=== PATIENT | male | born 1995 | race Caucasian/White ===

== ENCOUNTER 2018-11-17 05:15 | Emergency (ER) | payer MEDICAID, SELFPAY ==
[2018-11-17 05:21] VITALS: BP 121/61; PULSE 146; RESP 20; TEMP 36.5; O2SAT 93
--- NOTE | 2018-11-17 05:50 | DI.RAD_ITS ---
SYMPTOM/DIAGNOSIS: COUGH PA AND LATERAL CHEST: There are no prior comparison exams. The lungs are not well inflated on either view. There is mild respiratory motion on the lateral view. The heart size is normal. There is no mediastinal widening. The lungs appear clear. No pneumothorax is seen. IMPRESSION: Limited pulmonary inflation. No acute abnormality.
--- NOTE | 2018-11-17 05:54 | W.ED.GENAD ---
Discharge Plan Disposition Patient Disposition: HOME Condition: Good Discharge Details Chief Complaint: RespSymp Clinical Impression: Acute streptococcal pharyngitis, Influenza-like illness Primary Care Provider: Ze Santoyo ED Provider: Vladimir Webster Home Meds and New Rx's Prescriptions: Continued tretinoin [Retin-A] 45 GM cream 1 estela Topical HS Qty: 45 RF: 2 Changed ibuprofen 200 MG tablet 2 tab PO Q6H PRNQty: 0 RF: 0 Discharge Instructions Additional Instructions: Home and rest for the next couple of days. Drink plenty of fluids to stay hydrated. Salt water gargles or Cepacol lozenges to help with throat discomfort. Acetaminophen and ibuprofen for discomfort and fever. Follow-up with student health services next week if not better. Return to the emergency department for increasing difficulty breathing, inability to swallow, mental status changes, persistent vomiting, other concerns. Stand Alone Forms: School Release Medical Decision Making Patient is afebrile here but he is tachycardic and saturations in the low 90s. His lungs actually sound clear; I do not appreciate wheezing or rhonchi. Throat is erythematous with exudates. Nursing did a rapid strep which was positive. However, he has a significant cough and congestion. Will obtain flu swab and chest x-ray. Will place a line and give fluids and Toradol. Check CBC, chemistry, Monospot. Patient's flu swab is negative. White count is elevated to 20,000. Monospot is negative. There are no atypical lymphs. Chemistries were unremarkable. Chest x-ray per my review and per preliminary radiology read negative. Heart rate is come down to the 115 range with fluids. Saturations now 95% - 96% with no intervention. Discussed treatment. She has therapies. He needs to go back to school so will take IM shot of penicillin. We will give him a note for school for a couple of days to recover. Home to rest, drink plenty of fluids, gargles, ibuprofen/acetaminophen as needed. Lab Data Lab results reviewed: Yes I reviewed the patient's lab results. HPI General Mode of arrival: ambulatory. Date/Time Provider Initiated Documentation: 11/17/18 05:42. Limitations to Documentation: no limitations. Information obtained by: patient. HPI Narrative: Patient presents to ED with complaints of increased cough, sore throat, vomiting. Patient has had a mild URI for the last couple of weeks. It has consisted of intermittent cough and congestion. In the last 2 days he has become worse. He now has sweats, chills, increasing sore throat, increasing cough with sputum production. He has mild nausea. He has no abdominal pain or chest pain. He coughs so hard at times that he gags and vomits. He has some body aches though not severe. Denies significant headache. He does not smoke. He has a history of wheezing with previous URI but no firm diagnosis of asthma. Related Data Home Medications Medication Instructions Recorded Confirmed tretinoin [Retin-A] 1 estela TOPICAL HS #45 gm 01/25/15 11/17/18 ibuprofen 2 tab PO Q6H PRN #0 tab 11/17/18 11/17/18 Previous Rx's Medication Instructions Recorded ibuprofen 2 tab PO Q6H PRN #0 tab 11/17/18 Allergies Allergy/AdvReac Type Severity Reaction Status Date / Time No Known Allergies Allergy Unverified 11/17/18 05:34 General Stated Complaint: RespSymp RUTHIE: 4 Review of Systems Constitutional Reports body ache(s), Reports chills, Reports excessive sweating, Reports fever(s) (subjective), Denies headache(s), Reports malaise and Denies weakness Eyes Denies eye discharge ENT Denies otalgia, Denies headache(s), Reports nasal congestion, Denies neck pain, Denies sinus pain and Reports sore throat Cardiovascular Denies chest pain, Denies syncope, Denies lightheadedness and Denies dyspnea Respiratory Reports chest congestion, Reports cough and Denies dyspnea Gastrointestinal Denies abdominal pain, Denies diarrhea, Reports nausea and Reports vomiting Genitourinary Denies dysuria and Denies flank pain Musculoskeletal Denies back pain, Reports myalgias, Denies arthralgias, Denies neck pain and Denies numbness Integumentary/Breasts Denies rash Neurologic Denies confusion, Denies syncope, Denies headache(s), Denies numbness and Denies weakness Psychiatric Denies confusion Endocrine Reports excessive sweating [facility] Medical History Concussion frequent strep throat Surgical History Tonsillectomy and adenoidectomy left thumb repair Family History Mother Hypothyroid Father No problems noted. Other No problems noted. Social History Smoking/Tobacco Use Status: Never Drug use: Never Do you feel safe at home: Yes Do you feel safe in your relationship?: Yes Exam Const General: cooperative and no acute distress Nutritional Appearance: obese Orientation: alert and oriented x3 HENMT Head: normocephalic and atraumatic Ears: external ears normal and TM's normal bilaterally General nose exam: no nasal discharge Face and sinus: normal facial exam Mouth: oropharynx normal and moist mucous membranes Throat: posterior oropharynx abnormal erythema and exudates Eyes Conjunctivae: conjunctivae normal Neck Neck: no lymphadenopathy, no meningeal signs, trachea midline and supple Resp Effort & Inspection: normal respiratory effort Auscultation: clear to auscultation bilaterally Cardio Rate: tachycardic Rhythm: regular rhythm Heart Sounds: S1 normal and S2 normal GI Inspection: normal to inspection and non-distended Palpation: soft, not firm and nontender Skin Rashes: no rashes Neuro General: alert, oriented x3, no focal motor deficits and CN's II-XI intact bilaterally Extrem General: normal to inspection and full ROM Course Vital Signs Temperature 97.7 F 11/17/18 05:21 Pulse 146 H 11/17/18 05:21 Respiratory Rate 20 11/17/18 05:21 Blood Pressure 121/61 11/17/18 05:21 Pulse Oximetry 93 L 11/17/18 05:21 Temperature 97.7 F 11/17/18 05:21 Temperature Source Temporal Artery Scan 11/17/18 05:21 Pulse 146 H 11/17/18 05:21 Respiratory Rate 20 11/17/18 05:21 Respiratory Effort 11/17/18 05:32 Respiratory Depth Normal 11/17/18 05:32 Blood Pressure 121/61 11/17/18 05:21 Pulse Oximetry 93 L 11/17/18 05:21 Oxygen Delivery Method Room Air 11/17/18 05:21 Oxygen Flow Rate 0 11/17/18 05:21 Pain Level 7 11/17/18 05:21 Lab/Test Results Lab/Test Results: POC Strep Test-MARY(Rapid) Start: 11/17/18 05:35 Freq: .Rapid Strep Test Status: Active Protocol: Document 11/17/18 05:39 MJM (Rec: 11/17/18 05:40 [facility] [id number]) Strep test-MARY(Rapid)-POC POC-Strep test-MARY (Rapid) Positive POC-Strep test-MARY (Rapid) Positive
--- NOTE | 2018-11-17 06:02 | ED.GENADUL_ITS ---
Discharge Plan Disposition Patient Disposition: HOME Condition: Good Discharge Details Chief Complaint: RespSymp Clinical Impression: Acute streptococcal pharyngitis, Influenza-like illness Primary Care Provider: Ze Santoyo ED Provider: Vladimir Webster Home Meds and New Rx's Prescriptions: Continued tretinoin [Retin-A] 45 GM cream 1 estela Topical HS Qty: 45 RF: 2 Changed ibuprofen 200 MG tablet 2 tab PO Q6H PRNQty: 0 RF: 0 Discharge Instructions Additional Instructions: Home and rest for the next couple of days. Drink plenty of fluids to stay hydrated. Salt water gargles or Cepacol lozenges to help with throat discomfort. Acetaminophen and ibuprofen for discomfort and fever. Follow-up with student health services next week if not better. Return to the emergency department for increasing difficulty breathing, inability to swallow, mental status changes, persistent vomiting, other concerns. Stand Alone Forms: School Release Medical Decision Making Patient is afebrile here but he is tachycardic and saturations in the low 90s. His lungs actually sound clear; I do not appreciate wheezing or rhonchi. Throat is erythematous with exudates. Nursing did a rapid strep which was positive. However, he has a significant cough and congestion. Will obtain flu swab and chest x-ray. Will place a line and give fluids and Toradol. Check CBC, chemistry, Monospot. Patient's flu swab is negative. White count is elevated to 20,000. Monospot is negative. There are no atypical lymphs. Chemistries were unremarkable. Chest x-ray per my review and per preliminary radiology read negative. Heart rate is come down to the 115 range with fluids. Saturations now 95% - 96% with no intervention. Discussed treatment. She has therapies. He needs to go back to school so will take IM shot of penicillin. We will give him a note for school for a couple of days to recover. Home to rest, drink plenty of fluids, gargles, ibuprofen/acetaminophen as needed. Lab Data Lab results reviewed: Yes I reviewed the patient's lab results. HPI General Mode of arrival: ambulatory . Date/Time Provider Initiated Documentation: 11/17/18 05:42 . Limitations to Documentation: no limitations . Information obtained by: patient . HPI Narrative: Patient presents to ED with complaints of increased cough, sore throat, vomiting. Patient has had a mild URI for the last couple of weeks. It has consisted of intermittent cough and congestion. In the last 2 days he has become worse. He now has sweats, chills, increasing sore throat, increasing cough with sputum production. He has mild nausea. He has no abdominal pain or chest pain. He coughs so hard at times that he gags and vomits. He has some body aches though not severe. Denies significant headache. He does not smoke. He has a history of wheezing with previous URI but no firm diagnosis of asthma. Related Data Home Medications Medication Instructions Recorded Confirmed tretinoin [Retin-A] 1 estela TOPICAL HS #45 gm 01/25/15 11/17/18 ibuprofen 2 tab PO Q6H PRN #0 tab 11/17/18 11/17/18 Previous Rx's Medication Instructions Recorded ibuprofen 2 tab PO Q6H PRN #0 tab 11/17/18 Allergies Allergy/AdvReac Type Severity Reaction Status Date / Time No Known Allergies Allergy Unverified 11/17/18 05:34 General Stated Complaint: RespSymp RUTHIE: 4 Review of Systems Constitutional Reports body ache(s), Reports chills, Reports excessive sweating, Reports fever(s) (subjective), Denies headache(s), Reports malaise and Denies weakness Eyes Denies eye discharge ENT Denies otalgia, Denies headache(s), Reports nasal congestion, Denies neck pain, Denies sinus pain and Reports sore throat Cardiovascular Denies chest pain, Denies syncope, Denies lightheadedness and Denies dyspnea Respiratory Reports chest congestion, Reports cough and Denies dyspnea Gastrointestinal Denies abdominal pain, Denies diarrhea, Reports nausea and Reports vomiting Genitourinary Denies dysuria and Denies flank pain Musculoskeletal Denies back pain, Reports myalgias, Denies arthralgias, Denies neck pain and Denies numbness Integumentary/Breasts Denies rash Neurologic Denies confusion, Denies syncope, Denies headache(s), Denies numbness and Denies weakness Psychiatric Denies confusion Endocrine Reports excessive sweating [facility] Medical History Concussion frequent strep throat Surgical History Tonsillectomy and adenoidectomy left thumb repair Family History Mother Hypothyroid Father No problems noted. Other No problems noted. Social History Smoking/Tobacco Use Status: Never Drug use: Never Do you feel safe at home: Yes Do you feel safe in your relationship?: Yes Exam Const General: cooperative and no acute distress Nutritional Appearance: obese Orientation: alert and oriented x3 HENMT Head: normocephalic and atraumatic Ears: external ears normal and TM's normal bilaterally General nose exam: no nasal discharge Face and sinus: normal facial exam Mouth: oropharynx normal and moist mucous membranes Throat: posterior oropharynx abnormal erythema and exudates Eyes Conjunctivae: conjunctivae normal Neck Neck: no lymphadenopathy, no meningeal signs, trachea midline and supple Resp Effort & Inspection: normal respiratory effort Auscultation: clear to auscultation bilaterally Cardio Rate: tachycardic Rhythm: regular rhythm Heart Sounds: S1 normal and S2 normal GI Inspection: normal to inspection and non-distended Palpation: soft, not firm and nontender Skin Rashes: no rashes Neuro General: alert, oriented x3, no focal motor deficits and CN's II-XI intact bilaterally Extrem General: normal to inspection and full ROM Course Vital Signs Temperature 97.7 F 11/17/18 05:21 Pulse 146 H 11/17/18 05:21 Respiratory Rate 20 11/17/18 05:21 Blood Pressure 121/61 11/17/18 05:21 Pulse Oximetry 93 L 11/17/18 05:21 Temperature 97.7 F 11/17/18 05:21 Temperature Source Temporal Artery Scan 11/17/18 05:21 Pulse 146 H 11/17/18 05:21 Respiratory Rate 20 11/17/18 05:21 Respiratory Effort 11/17/18 05:32 Respiratory Depth Normal 11/17/18 05:32 Blood Pressure 121/61 11/17/18 05:21 Pulse Oximetry 93 L 11/17/18 05:21 Oxygen Delivery Method Room Air 11/17/18 05:21 Oxygen Flow Rate 0 11/17/18 05:21 Pain Level 7 11/17/18 05:21 Lab/Test Results Lab/Test Results: POC Strep Test-MARY(Rapid) Start: 11/17/18 05:35 Freq: .Rapid Strep Test Status: Active Protocol: Document 11/17/18 05:39 MJM (Rec: 11/17/18 05:40 [facility] [id number]) Strep test-MARY(Rapid)-POC POC-Strep test-MARY (Rapid) Positive POC-Strep test-MARY (Rapid) Positive
[2018-11-17] MEDS: Normal Saline 1,000 ML 1000 ML IV (06:04)
[2018-11-17] MEDS: Ketorolac 30 MG/ML VIAL IVP (06:04)
[2018-11-17 06:22] LABS: Abs Immature Grans 0.05 k/cumm (0.0-0.09); Absolute Basophil Count 0.02 k/cumm (0.0-0.2); Absolute Lymphocyte Count 0.81 k/cumm (1.2-3.4); Absolute Monocyte Count 1.16 k/cumm (0.11-0.7); Basophils % 0.1; HCT 42.1 % (40.0-50.0); HGB 15.1 g/dL (13.5-17.5); Immature Grans % 0.2; Mean Corp. HGB Concentration 35.9 g/dL (32.0-36.0); Mean Corpuscular Hemoglobin 29.5 pg (27.0-33.0); Mean Corpuscular Volume 82.4 fL (80-95); Mean Platelet Volume 9.5 fL (8.0-11.0); Monocytes % 5.7; Platelet Count 296 x1000/uL (130-400); RBC 5.11 m/cumm (4.50-6.00); RBC Distribution Width 12.7 % (11.8-14.1); White Blood Cell Count 20.32 k/cumm (4.4-10.8)
[2018-11-17 06:25] LABS: Anion Gap 15.7 mmol/L (3-11); BUN 17 mg/dL (7-18); CO2 24.3 mmol/L (21.0-32.0); Calcium 9.3 mg/dL (8.5-10.1); Chloride 98 mmol/L (98-107); Glucose 133 mg/dL (70-100); Potassium 3.9 mmol/L (3.5-5.1); Sodium 138 mmol/L (136-145)
[2018-11-17 06:27] LABS: Mono Screening Negative (Negative)
[2018-11-17 06:28] LABS: Absolute Neutrophil Count 18.29 k/cumm (1.2-6.7)
--- NOTE | 2018-11-17 06:30 | DI.VRAD_ITS ---
EXAM: XR Chest, 2 Views EXAM DATE/TIME: 11/17/2018 5:53 AM CLINICAL HISTORY: 23 years old, male; Signs and symptoms; Cough TECHNIQUE: Imaging protocol: XR of the chest, 2 views. COMPARISON: No relevant prior studies available. FINDINGS: Lungs: Unremarkable. No consolidation. Pleural space: Unremarkable. No evidence of pneumothorax. Heart/Mediastinum: Unremarkable. Heart size within normal limits for technique. Bones/joints: Unremarkable. IMPRESSION: No acute findings. Dictated and Authenticated by: Sammy Fuller MD. Ordering:SUSY Gilbert MD
[2018-11-17 08:20] VITALS: BP 142/88; PULSE 105; RESP 16; TEMP 36.5; O2SAT 98
== END 2018-11-17 08:20 | disposition home or self-care (01) ==
PROVIDERS: Emergency Provider Emergency Medicine; PCP Pediatrics
DX: J02.0 Streptococcal pharyngitis (principal); J11.1 Influenza due to unidentified influenza virus with other respiratory manifestations
CPT/HCPCS: 36415; 80048; 87449; 87880; 96361; 96372; 96374; 99284; 71046; 85025; 86308; 99283; J0561; J1885

== ENCOUNTER 2019-06-13 08:37 | Emergency (ER) | payer MEDICAID, SELFPAY ==
[2019-06-13 08:44] VITALS: BP 159/87; PULSE 87; RESP 16; TEMP 36.6; O2SAT 98
--- NOTE | 2019-06-13 08:49 | ED.GENADUL_ITS ---
Discharge Plan Disposition Patient Disposition: HOME Condition: Stable Discharge Details Chief Complaint: RashLesion Clinical Impression: Herpetic jyoti Primary Care Provider: Ze Santoyo ED Provider: Khoi Coffey [place] Meds and New Rx's Prescriptions: New acyclovir 5 % ointment 1 applic TP 6XD 7 Days RF: 0 cephalexin 500 mg capsule 500 mg PO TID Qty: 21 RF: 0 Discharge Instructions Additional Instructions: if your rash is not better within 1 week see your primary care provider if you have redness spreading up the hand or fevers or severe pain return to the emergency department Medical Decision Making 24 yo male comes in with rash on right middle finger for 1 day. He denies fevers or other systemic symptoms. He has numerous small vesicles on distal right middle finger on the posterior surface with mild surrounding erythema less than 0.5cm. No discharge or purulence, has intact sensation and full rom of the finger. Suspect herpetic jyoti but given erythema will also trreat possible cellulitis. Advised if not better within 1 week be seen and return if worsening Differential Diagnosis Differential Diagnosis: cellulitis, herpetic jyoti HPI General Mode of arrival: ambulatory . Date/Time Provider Initiated Documentation: 06/13/19 08:41 . Limitations to Documentation: no limitations . Information obtained by: patient . History of Present Illness 24 year old M presents to the emergency department with the chief complaint of rash, described as mild, Quality is described as aching, and is localized to the right and upper extremity. Patient reports no radiation. Patient started experiencing this day(s) (1) and it has been constant. No relieving factors improve symptom(s), No exacerbating factors reported . Related Data Home Medications Medication Instructions Recorded Confirmed acyclovir 1 applic TP 6XD 7 Days gm 06/13/19 cephalexin 500 mg PO TID #21 cap 06/13/19 Previous Rx's Medication Instructions Recorded acyclovir 1 applic TP 6XD 7 Days gm 06/13/19 cephalexin 500 mg PO TID #21 cap 06/13/19 Allergies Allergy/AdvReac Type Severity Reaction Status Date / Time No Known Allergies Allergy Unverified 06/13/19 08:47 General Stated Complaint: RashLesion RUTHIE: 5 Review of Systems Review of Systems ROS Unobtainable: All systems reviewed & are unremarkable except as noted in HPI and below Constitutional Constitutional: Denies chills, Denies fever(s) and Denies weakness ENT Ears, Nose, Mouth, and Throat: Denies change in voice Cardiovascular Cardiovascular: Denies chest pain and Denies dyspnea Respiratory Respiratory: Denies cough and Denies dyspnea Gastrointestinal Gastrointestinal: Denies abdominal pain, Denies nausea and Denies vomiting Neurologic Neurologic: Denies weakness PFSH Family History Mother Hypothyroid Father No problems noted. Other No problems noted. Social History Smoking/Tobacco Use Status: Never Drug use: Socially Substance use type: marijuana Do you feel safe at home: Yes Do you feel safe in your relationship?: Yes Exam Const General: no acute distress Orientation: alert HENMT Head: normal to inspection Ears: external ears normal General nose exam: external nose normal Mouth: moist mucous membranes Eyes General: appearance normal, both eyes and all related structures Neck Neck: normal visual inspection Resp Effort & Inspection: normal respiratory effort and able to speak in complete sentences Cardio Rate: regular rate Skin General skin exam: elasticity normal Neuro General: alert and oriented x3 Extrem General: full ROM and normal capillary refill Psych Mental Status: mental status grossly normal Course Vital Signs Vital signs: Vital Signs Temperature 36.6 C 06/13/19 08:44 Pulse 87 06/13/19 08:44 Respiratory Rate 16 06/13/19 08:44 Blood Pressure 159/87 H 06/13/19 08:44 Pulse Oximetry 98 06/13/19 08:44 Temperature 36.6 C 06/13/19 08:44 Temperature Source Temporal Artery Scan 06/13/19 08:44 Pulse 87 06/13/19 08:44 Respiratory Rate 16 06/13/19 08:44 Respiratory Effort 06/13/19 08:44 Blood Pressure 159/87 H 06/13/19 08:44 Pulse Oximetry 98 06/13/19 08:44 Oxygen Delivery Method Room Air 06/13/19 08:44 Oxygen Flow Rate 0 06/13/19 08:44 Pain Level 8 06/13/19 08:44
== END 2019-06-13 08:54 | disposition home or self-care (01) ==
PROVIDERS: Emergency Provider Emergency Medicine; PCP Pediatrics
DX: B00.89 Other herpesviral infection (principal)
CPT/HCPCS: 99283

== ENCOUNTER 2019-11-10 16:20 | Emergency (ER) | payer MEDICAID, SELFPAY ==
[2019-11-10 16:21] VITALS: BP 135/79; PULSE 89; RESP 16; TEMP 36.6; O2SAT 96
--- NOTE | 2019-11-10 16:26 | ED.GENADUL_ITS ---
Discharge Plan Disposition Patient Disposition: HOME Condition: Good Discharge Details Chief Complaint: RashLesion Clinical Impression: Cat scratch fever Primary Care Provider: Ze Santoyo ED Provider: Niya Valderrama Home Meds and New Rx's Prescriptions: New azithromycin 250 mg tablet See Rx Instructions .ROUTE .COMPLEX Qty: 6 RF: 0 Discharge Instructions Instructions: Cellulitis (ED), Cat Scratch Disease (ED) Additional Instructions: With findings of vesicle at the site of scratches most consistent with cat scratch disease. Do not show any signs of the progressive illness and will likely do quite well with this as you are and otherwise healthy person. Please take the azithromycin as prescribed. Please follow-up with primary care in 2 to 3 days for reevaluation. If you develop fever/chills, increased pain, spreading of the redness or the new/worsening symptoms please seek care urgently once again. Referrals: Ze Santoyo MD [Primary Care Provider] - Discharge Data Discharge Date/Time-TO BE ENTERED AT DEPARTURE: 11/10/19 17:11 Medical Decision Making Patient is a pleasant 24-year-old [id number] male presenting today for evaluation of cat scratch on the ulnar side of his right wrist. He reports that he sustained a scratch 2 days ago. Since that time, had noted vesicles around the area of scratch. Denies any fevers or chills. States that this has been slightly itchy denies any pain. Has noted some discharge from the vesicles. Did apply Band-Aid and reports that after removing this he did not erythema the area of the Band-Aid. Has had issues with adhesives historically. States that he is up-to-date on immunizations. Cat is known to him and up to date on immunizations as well. On exam, patient has very vesicles surrounding a 1.5 cm superficial scratch consistent with a cat wound. Surrounding area of vesicles is a raised erythematous area that is nontender. It is warm to the touch. There is most consistent with a large hive. However, the vesicles are concerning. This is concerning for cat scratch disease. Plan to treat as such. He has no lymphadenopathy or signs of systemic illness. He is otherwise immunocompetent and should do well with this. Will treat with azithromycin as advised and up-to-date. We discussed the clinical course. He was given return precautions. Dressings were given that are nonadhesive. Follow-up with primary care in few days for reevaluation. All his questions and concerns were addressed and he is in agreement this plan. HPI General Mode of arrival: ambulatory . Date/Time Provider Initiated Documentation: 11/10/19 16:26 . Limitations to Documentation: no limitations . Information obtained by: patient and RN notes reviewed . History of Present Illness 24 year old M presents to the emergency department with the chief complaint of cat scratch 2 days ago, described as mild, with intensity rated at 4 (states it has been itchy). Quality is described as other (itching and t ingling), and is localized to the right and upper extremity. Patient started experiencing this day(s) (2) and it has been constant. No relieving factors improve symptom(s), No exacerbating factors reported . Patient notes no other symptoms.. Patient did receive the following treatments prior to arrival, other (steroid creams) Related Data Home Medications Medication Instructions Recorded Confirmed azithromycin See Rx Instructions .ROUTE 11/10/19 .COMPLEX #6 tab Previous Rx's Medication Instructions Recorded azithromycin See Rx Instructions .ROUTE 11/10/19 .COMPLEX #6 tab Allergies Allergy/AdvReac Type Severity Reaction Status Date / Time No Known Allergies Allergy Unverified 11/10/19 16:26 General Stated Complaint: RashLesion RUTHIE: 4 Review of Systems Constitutional Constitutional: Reports as per HPI, Denies chills and Denies fever(s) Musculoskeletal Musculoskeletal: Reports as per HPI Integumentary/Breasts Skin/Breast: Reports as per HPI Neurologic Neurologic: Reports as per HPI, Denies sensory deficit and Denies paresthesias [facility] Medical History Concussion frequent strep throat Surgical History left thumb repair bit by a pig at age 4 Tonsillectomy and adenoidectomy Family History Mother Hypothyroid Father No problems noted. Other No problems noted. Social History Smoking/Tobacco Use Status: Never Drug use: Socially Substance use type: marijuana Do you feel safe at home: Yes Do you feel safe in your relationship?: Yes Exam Const General: cooperative, healthy appearing, comfortable, no acute distress and well developed Nutritional Appearance: well nourished and obese Orientation: alert and awake Resp Effort & Inspection: normal respiratory effort, able to speak in complete sentences and no respiratory distress Cardio Rate: regular rate Rhythm: regular rhythm Skin General skin exam: erythema, no fluctuance and other (vesicles in center area of erythema over small scratch) Neuro General: patient alert and patient awake Cognition: normal cognition Speech: speech normal Gait: normal gait Sensory Exam: no sensory deficits noted Extrem Right upper extremity: full ROM, normal capillary refill, no joint enlargement and wrist (2+ distal pulses,); abnormal to inspection (As drawn below. No palpable lymphadenopathy) Elbow/forearm/wrist images: 1. Focal area of vesicles surrounding small cat scratch 2. Area of raised, nontender erythema Psych Appearance: grossly normal and well kempt Mental Status: mental status grossly normal Speech and Movement: speech and movement normal Course Vital Signs Vital signs: Vital Signs Temperature 36.6 C 11/10/19 16:21 Pulse 89 11/10/19 16:21 Respiratory Rate 16 11/10/19 16:21 Blood Pressure 135/79 11/10/19 16:21 Pulse Oximetry 96 11/10/19 16:21 Temperature 36.6 C 11/10/19 16:21 Temperature Source Skin 11/10/19 16:21 Pulse 89 11/10/19 16:21 Respiratory Rate 16 11/10/19 16:21 Blood Pressure 135/79 11/10/19 16:21 Blood Pressure Position Sitting 11/10/19 16:21 Pulse Oximetry 96 11/10/19 16:21 Oxygen Delivery Method Room Air 11/10/19 16:21 Oxygen Flow Rate 0 11/10/19 16:21 Pain Level 4 11/10/19 16:21
== END 2019-11-10 17:11 | disposition home or self-care (01) ==
PROVIDERS: Emergency Provider Physician Assistant; PCP Pediatrics
DX: A28.1 Cat-scratch disease (principal); S60.811A Abrasion of right wrist, initial encounter; W55.03XA Scratched by cat, initial encounter
CPT/HCPCS: 99283

== ENCOUNTER 2019-11-12 18:23 | Emergency (ER) | payer MEDICAID, SELFPAY ==
[2019-11-12 18:33] VITALS: BP 149/110; PULSE 96; RESP 16; TEMP 36.8; O2SAT 97
--- NOTE | 2019-11-12 18:41 | ED.GENADUL_ITS ---
Discharge Plan Disposition Patient Disposition: HOME Condition: Good Discharge Details Chief Complaint: RashLesion Clinical Impression: Dermatitis Primary Care Provider: Ze Santoyo ED Provider: Efrain Rivera Home Meds and New Rx's Prescriptions: New hydrocortisone 2.5 % cream 1 applic TP TID Qty: 20 RF: 0 loratadine 10 mg capsule 10 mg PO DAILY Qty: 10 RF: 0 No Action azithromycin 250 mg tablet See Rx Instructions .ROUTE .COMPLEX Qty: 6 RF: 0 Discharge Instructions Instructions: Dermatitis (ED) Additional Instructions: At this time your symptoms Care Plan Goals: At this time your symptoms do not appear consistent with cat scratch fever, however I would continue the antibiotic. The skin certainly shows symptoms more concerning for an allergic dermatitis at this stage. Please apply the steroid ointment as directed. It is very important to follow-up with your primary care provider in 48 hours to evaluate for change in your symptoms, including improvement or worsening. Please take the loratadine as directed to help with itching and allergic component. We are performing skin cultures, as well as potential viral cultures which your PCP can follow-up with on your repeat assessment. If you notice any worsening of your symptoms, or any new symptoms such as spreading of redness, worsening pain, vomiting, diarrhea, fever, chills, shortness of breath, chest pain, numbness, weakness, or fainting , please return immediately to the emergency department for reevaluation. Please follow up with your primary care provider as soon as possible for reassessment and reevaluation. As always, it was a pleasure participating in your medical care today. Referrals: Ze Santoyo MD [Primary Care Provider] - Medical Decision Making 24-year-old male with past medical history of previous skin reactions and high skin sensitivity to allergic contacts, presents today for evaluation of rash on his right wrist. Patient was seen 2 days ago, after being scratched by a cat. He had a few very small vesicles noted at that time. There is concern for potential cat scratch fever, he was started on azithromycin and discharged home. Patient did develop some extreme itching, he took Benadryl which notably improved the itching but he feels that the vesicles and redness is spreading. He denies fever or chills. There is mild pain in his hand, worse with movement. He denies any significant changes in sensation. He denies any redness traveling up his arm. He denies any new lymphadenopathy or other complaints. He has been taking the azithromycin as directed. Physical exam demonstrates small vesicles noted on the medial aspect of the wrist at the crease. No palpable purpura. No oral lesions. No mucosal lesions. No evidence of severe cellulitis. No evidence of significant redness surrounding this area. Minimal swelling is noted. Distal capillary refill is intact. The small vesicles do not easily rub off. The area of inclusion centrally goes from the mid dorsal aspect of the wrist wrapping completely around medially to the lateral third on the ventral aspect of the wrist. No evidence of distal lesions, no signs of herpetic jyoti. The patient symptoms appear very unlike herpetic jyoti or cat scratch fever. In fact instead they look notably more manas to a contact dermatitis type reaction. There is no evidence of significant cellulitis surrounding these vesicles, no evidence of traveling cellulitis either. The patient has no symptoms of fever or chills whatsoever. The patient does have a history of herpetic jyoti, and out of an abundance of precaution we will do a viral swab of the vesicles, as well as a bacterial skin swab. Symptoms at this point appear inconsistent with erysipelas. With no signs of significant cellulitis I do not feel that he needs additional antibiotics at this point. We will give a topical steroid cream, and recommend loratadine for the itching. This certainly seems more consistent with his symptoms. 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 We will do topical hydrocortisone for the time being, loratadine for the itching, recommend close follow-up. We will place a referral for follow-up with pediatrics on this Sunday. I have extensively reviewed the treatment plan and discharge instructions with the patient. I have addressed all patient concerns at this time. The patient was made aware of what symptoms to monitor for that would warrant a return to the emergency department. Discussed the plan with the patient, they demonstrate verbal understanding and agreement with our assessment and plan at this time. HPI General Date/Time Provider Initiated Documentation: 11/12/19 18:28 . HPI Narrative: 24-year-old male with past medical history of previous skin reactions and high skin sensitivity to allergic contacts, presents today for evaluation of rash on his right wrist. Patient was seen 2 days ago, after being scratched by a cat. He had a few very small vesicles noted at that time. There is concern for potential cat scratch fever, he was started on azithromycin and discharged home. Patient did develop some extreme itching, he took Benadryl which notably improved the itching but he feels that the vesicles and redness is spreading. He denies fever or chills. There is mild pain in his hand, worse with movement. He denies any significant changes in sensation. He denies any redness traveling up his arm. He denies any new lymphadenopathy or other complaints. He has been taking the azithromycin as directed. 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 No other complaints at this time. No other modifying factors. Related Data Home Medications Medication Instructions Recorded Confirmed azithromycin See Rx Instructions .ROUTE 11/10/19 11/12/19 .COMPLEX #6 tab hydrocortisone 1 applic TP TID #20 gm 11/12/19 loratadine 10 mg PO DAILY #10 cap 11/12/19 Previous Rx's Medication Instructions Recorded azithromycin See Rx Instructions .ROUTE 11/10/19 .COMPLEX #6 tab hydrocortisone 1 applic TP TID #20 gm 11/12/19 loratadine 10 mg PO DAILY #10 cap 11/12/19 Allergies Allergy/AdvReac Type Severity Reaction Status Date / Time No Known Allergies Allergy Unverified 11/12/19 18:36 General Stated Complaint: RashLesion RUTHIE: 4 Review of Systems All systems reviewed & are unremarkable except as noted in HPI and below PFSH Family History Mother Hypothyroid Father No problems noted. Other No problems noted. Social History Smoking/Tobacco Use Status: Never Alcohol Intake: current Alcohol Intake frequency: holidays/special occasions only Alcohol type: hard liquor Drug use: Socially Substance use type: marijuana Do you feel safe at home: Yes Do you feel safe in your relationship?: Yes Exam Narrative Exam Narrative: 1.Const: Well-nourished, Well-developed, appearing stated age 2.Eyes: PERRL, no conjunctival injection, and symmetrical lids. 3.ENT: Atraumatic external nose and ears. Moist MM. Neck: Symmetric, trachea midline, No thyromegaly. 4.CVS: +S1/S2, No murmurs or gallops. Peripheral pulses 2+ and equal in all extremities. Brisk capillary refill in all extremities. 5.RESP: Unlabored respiratory effort. Clear to auscultation bilaterally. No wheezes rales or rhonchi 6.GI: Soft, Nontender/Nondistended, No hepatosplenomegaly. No guarding or rebound. 7.MSK: Normocephalic/Atraumatic, Extremities w/o deformity or ttp No cyanosis or clubbing, Normal movement of all extremities 8.Skin: Warm, negative Nikolsky sign. No large vesicles or bulla. However there are small vesicles noted on the medial aspect of the wrist at the crease. No palpable purpura. No oral lesions. No mucosal lesions. No evidence of severe cellulitis. No evidence of significant redness surrounding this area. Minimal swelling is noted. Distal capillary refill is intact. The small vesicles do not easily rub off. The area of inclusion centrally goes from the mid dorsal aspect of the wrist wrapping completely around medially to the late ral third on the ventral aspect of the wrist. No evidence of distal lesions, no signs of herpetic jyoti. No evidence of vaccine preventable rash. 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 Sensation grossly intact, no focal neurologic deficits. 10.Psych: (AAO) x3. Appropriate mood and affect Course Vital Signs Vital signs: Vital Signs Temperature 36.8 C 11/12/19 18:33 Pulse 96 H 11/12/19 18:33 Respiratory Rate 16 11/12/19 18:33 Blood Pressure 149/110 H 11/12/19 18:33 Pulse Oximetry 97 11/12/19 18:33 Temperature 36.8 C 11/12/19 18:33 Temperature Source Tympanic 11/12/19 18:33 Pulse 96 H 11/12/19 18:33 Respiratory Rate 16 11/12/19 18:33 Respiratory Effort Non-Labored 11/12/19 18:36 Blood Pressure 149/110 H 11/12/19 18:33 Pulse Oximetry 97 11/12/19 18:33 Oxygen Delivery Method Room Air 11/12/19 18:33 Oxygen Flow Rate 0 11/12/19 18:33 Pain Level 8 11/12/19 18:33
--- NOTE | 2019-11-12 18:55 | NUR.NOTE ---
Referral faxed to [facility].Nursing Note:
[2019-11-12 19:11] VITALS: BP 157/84; PULSE 80; RESP 17; O2SAT 98
[2019-11-14 12:21] LABS: HSV 1 DNA Result Negative (Negative); HSV 2 DNA Result Negative (Negative)
== END 2019-11-12 19:33 | disposition home or self-care (01) ==
PROVIDERS: Emergency Provider Student in an Organized Health Care Education/Training Program; PCP Pediatrics
DX: L30.8 Other specified dermatitis (principal)
CPT/HCPCS: 87529; 99283; 87070; 87205

== ENCOUNTER 2021-09-23 09:16 | Emergency (ER) | payer MEDICAID, SELFPAY ==
[2021-09-23 09:24] VITALS: BP 129/85; PULSE 95; RESP 16; TEMP 36.7; O2SAT 96
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
[2021-09-23] MEDS: Acetaminophen 325 MG TAB 650 MG PO (09:45)
[2021-09-23] MEDS: Bacitracin 1 PACKET TP (09:45)
[2021-09-23] MEDS: Ibuprofen 600 MG TAB PO (09:45)
--- NOTE | 2021-09-23 10:15 | NUR.NOTE ---
Nursing Note: need referral for pcp
== END 2021-09-23 10:15 | disposition home or self-care (01) ==
LOC: ER 10:01
PROVIDERS: Emergency Provider Student in an Organized Health Care Education/Training Program
DX: T23.241A Burn of second degree of multiple right fingers (nail), including thumb, initial encounter (principal); T23.242A Burn of second degree of multiple left fingers (nail), including thumb, initial encounter; X10.0XXA Contact with hot drinks, initial encounter
CPT/HCPCS: 99283

== ENCOUNTER 2021-09-26 12:33 | Emergency (ER) | payer MEDICAID, SELFPAY ==
[2021-09-26 12:41] VITALS: BP 123/90; PULSE 92; RESP 16; TEMP 36.5; O2SAT 95
--- NOTE | 2021-09-26 13:36 | ED.GENADUL_ITS ---
Discharge Plan Disposition Patient Disposition: HOME Condition: Stable Discharge Details Clinical Impression: Rash Primary Care Provider: Unknown,Unknown ED Provider: Karlos Ramirez Home Meds and New Rx's Prescriptions: Continued loratadine 10 mg capsule 10 mg PO DAILY Qty: 10 RF: 0 Discontinued bacitracin 500 unit/gram ointment 1 applic topical DAILY 7 Days Qty: 28 RF: 0 Discharge Instructions Instructions: Acute Rash (ED) Additional Instructions: [id number] Benadryl T topical or oral as directed for itching. Avoid any antibiotic ointment cream that you may be allergic to. Please watch for new or worsening symptoms and return to the ER for any concerns Medical Decision Making 26-year-old gentleman sustained dunham to his right thumb and his left hand on Sunday. He only put cream on his right thumb. The left hand has resolved. He reports that the rash is slightly itchy. Denies fever or pain. Patient has a history of herpetic jyoti but only on her second and third digit. He feels different than herpetic jyoti. Based upon the location, only place he has a rash is aware he apply the antibiotic ointment, I believe this is likely secon elfego to the ointment. I see no evidence of secondary infection. We discussed options. He will be sure not to use any antibiotic ointment that he is allergic to and he will use gaub-scg-fyjckmo Benadryl for symptomatic control. Standard discharge and return precautions provided. No additional questions or concerns this documentation was generated using [employer] system, please disregard any oddities of phrase or misspellings. Medical Records Medical records reviewed: Yes I reviewed the patient's medical records. HPI General Mode of arrival: ambulatory . Date/Time Provider Initiated Documentation: 09/26/21 12:43 . Limitations to Documentation: no limitations . Information obtained by: patient . History of Present Illness 26 year old M presents to the emergency department with the chief complaint of Skin reaction, described as mild, with intensity rated at 2. Quality is described as other (Itchy), and is localized to the upper extremity. Patient reports no radiation. Patient started experiencing this day(s) (2) and it has been constant. No relieving factors improve symptom(s), Other factors that worsen symptoms (Antibiotic ointment) . Patient notes no other symptoms.. Patient did receive the following treatments prior to arrival, other (Antibiotic ointment) Related Data Home Medications Medication Instructions Recorded Confirmed loratadine 10 mg PO DAILY #10 cap 11/12/19 09/26/21 Previous Rx's Medication Instructions Recorded loratadine 10 mg PO DAILY #10 cap 11/12/19 Allergies Allergy/AdvReac Type Severity Reaction Status Date / Time bacitracin Allergy Skin Rash Unverified 09/26/21 12:52 [From Neosporin ([id number])] latex Allergy Skin Rash Unverified 09/26/21 12:53 neomycin Allergy Skin Rash Unverified 09/26/21 12:52 [From Neosporin ([id number])] polymyxin B Allergy Skin Rash Unverified 09/26/21 12:52 [From Neosporin ([id number])] General Stated Complaint: Recheck RUTHIE: 4 Review of Systems Constitutional Constitutional: Denies fever(s) and Denies weakness Musculoskeletal Musculoskeletal: Denies arthralgias, Denies numbness and Denies tingling Integumentary/Breasts Skin/Breast: Reports rash Neurologic Neurologic: Denies numbness, Denies tingling and Denies weakness PFSH All Active Problems Burn of multiple fingers (Acute) Rash (Acute) Medical History Concussion frequent strep throat Surgical History left thumb repair bit by a pig at age 4 Tonsillectomy and adenoidectomy Family History Mother Hypothyroid Father No problems noted. Other No problems noted. Social History Smoking/Tobacco Use Status: Never Smoking risk assessment performed?: Yes Alcohol Intake: current Alcohol Intake frequency: holidays/special occasions only Alcohol type: hard liquor Drug use: Socially Substance use type: marijuana Do you feel safe at home: Yes Do you feel safe in your relationship?: Yes Exam Const General: cooperative, healthy appearing, comfortable and no acute distress Orientation: alert and awake [facility] Head: normal to inspection, normocephalic and atraumatic Eyes Conjunctivae: conjunctivae normal Neck Neck: normal visual inspection, trachea midline and supple Resp Effort & Inspection: normal respiratory effort and able to speak in complete sentences Cardio Rate: regular rate Rhythm: regular rhythm Skin General skin exam: erythema Neuro General: patient alert, patient awake, moves all extremities and no focal motor deficits Cognition: normal cognition Speech: speech normal Sensory Exam: no sensory deficits noted Extrem General: full ROM and capillary refill normal Hand/finger images: 1. What appears to be primarily first-degree burn, noncircumferential. Distally just before the nailbed there is a single intact blister. Patient repo rts this has been present ever since the burn. Superimposed over the general erythema there is a scant slightly papular rash. There is no drainage or weeping. Nontender. No lymphangitic streaking. Psych Appearance: grossly normal Mental Status: mental status grossly normal Course Vital Signs Vital signs: Vital Signs Temperature 36.5 C 09/26/21 12:41 Pulse 92 H 09/26/21 12:41 Respiratory Rate 16 09/26/21 12:41 Blood Pressure 123/90 09/26/21 12:41 Pulse Oximetry 95 09/26/21 12:41 Temperature 36.5 C 09/26/21 12:41 Temperature Source Temporal Artery Scan 09/26/21 12:41 Pulse 92 H 09/26/21 12:41 Respiratory Rate 16 09/26/21 12:41 Blood Pressure 123/90 09/26/21 12:41 Blood Pressure Position Sitting 09/26/21 12:41 Pulse Oximetry 95 09/26/21 12:41 Oxygen Delivery Method Room Air 09/26/21 12:41 Oxygen Flow Rate 0 09/26/21 12:41 Pain Level 2 09/26/21 12:41
== END 2021-09-26 13:46 | disposition home or self-care (01) ==
PROVIDERS: Emergency Provider Physician Assistant
DX: R21 Rash and other nonspecific skin eruption (principal); T23.1 Burn of first degree of wrist and hand; X10.0XXD Contact with hot drinks, subsequent encounter
CPT/HCPCS: 99281; 99282

== ENCOUNTER 2024-01-21 10:03 | Emergency (ER) | payer MEDICAID, SELFPAY ==
[2024-01-21 10:06] VITALS: BP 150/99; PULSE 89; RESP 18; TEMP 36.5; O2SAT 98
--- NOTE | 2024-01-21 10:11 | W.ED.GENAD ---
Discharge Plan Disposition Patient Disposition: Home Condition: Stable Discharge Details Clinical Impression: Dermatitis due to plants, including poison michelle, sumac, and oak Primary Care Provider: None,None ED Provider: Carolina Limon Home Meds and New Rx's Prescriptions: New prednisone 20 mg tablet 40 mg PO DAILY 5 Days Qty: 10 0RF Discharge Instructions Instructions: Poison Michelle (ED), Dermatitis (ED) Additional Instructions: Continue using calamine lotion, you may also take Benadryl 1 to 2 tablets every 6-8 hours or Claritin as directed. Continue to wash your hands and try not to scratch the rash to prevent infection. You may also do oatmeal baths and cool compresses. If rash worsens you may start the prednisone tablets next week. Do not start them until next week. Follow up with primary care provider in 3-5 days if needed. Return to ED sooner if any worsening or concerns. Please take Tylenol or Ibuprofen with food every 4-6 hours as needed for pain and swelling. Discharge Data Discharge Date/Time-TO BE ENTERED AT DEPARTURE: 01/21/24 10:24 HPI General Mode of arrival: ambulatory. Date/Time Provider Initiated Documentation: 01/21/24 10:11. Limitations to Documentation: no limitations. Information obtained by: patient. HPI Narrative: 28-year-old male presents to the ER chief complaint of rash noted to his bilateral upper extremities after working out in the [employer] yesterday. He does have maculopapular rash noted to in between his webbing on his left hand and his anterior dorsum of his right hand and arm. He does describe it as pruritic. Denies any other associated symptoms no fever chills nausea vomiting diarrhea. Related Data Home Medications Medication Instructions Recorded Confirmed prednisone 20 mg tablet 40 mg (2 x 20 mg) PO DAILY 5 days 01/21/24 #10 tabs Previous Rx's Medication Instructions Recorded prednisone 20 mg tablet 40 mg (2 x 20 mg) PO DAILY 5 days 01/21/24 #10 tabs Allergies Allergy/AdvReac Type Severity Reaction Status Date / Time bacitracin Allergy Skin Rash Unverified 01/21/24 10:08 [From Neosporin ([id number])] latex Allergy Skin Rash Unverified 01/21/24 10:08 neomycin Allergy Skin Rash Unverified 01/21/24 10:08 [From Neosporin ([id number])] polymyxin B Allergy Skin Rash Unverified 01/21/24 10:08 [From Neosporin ([id number]-[id number])] General Stated Complaint: RashLesion RUTHIE: 4 Review of Systems All systems reviewed & are unremarkable except as noted in HPI and below Integumentary/Breasts Skin/Breast: Reports as per HPI, Reports pruritus and Reports rash Exam Const General: cooperative, comfortable and well developed Nutritional Appearance: overweight Orientation: alert, awake and oriented x3 Resp Effort & Inspection: normal respiratory effort and able to speak in complete sentences Cardio Rate: regular rate Rhythm: regular rhythm Skin Rashes: rashes noted (Upper extremities) maculopapular rash bilateral anterior Trauma: no lacerations or abrasions Wounds: no wounds Hair: normal Nails: normal Course Vital Signs Vital signs: Vital Signs Temperature 36.5 C 01/21/24 10:06 Pulse 89 01/21/24 10:06 Respiratory Rate 18 01/21/24 10:06 Blood Pressure 150/99 H 01/21/24 10:06 Pulse Oximetry 98 01/21/24 10:06 Temperature 36.5 C 01/21/24 10:06 Temperature Source Skin 01/21/24 10:06 Pulse 89 01/21/24 10:06 Respiratory Rate 18 01/21/24 10:06 Respiratory Effort Normal, Non-Labored 01/21/24 10:08 Blood Pressure 150/99 H 01/21/24 10:06 Blood Pressure Position Sitting 01/21/24 10:06 Pulse Oximetry 98 01/21/24 10:06 Oxygen Delivery Method Room Air 01/21/24 10:06 Oxygen Flow Rate 0 01/21/24 10:06 Pain Level 0 01/21/24 10:06 Medical Decision Making 28-year-old male presents to the ER chief complaint of rash noted to his bilateral upper extremities after working out in the [employer] yesterday. He does have maculopapular rash noted to in between his webbing on his left hand and his anterior dorsum of his right hand and arm. He does describe it as pruritic. Denies any other associated symptoms no fever chills nausea vomiting diarrhea. He has had poison oak in the past. He reports that when he had it in the past it did get very severe and he had to have prednisone for month. Allergies include bacitracin latex neomycin polymyxin B, past medical history includes frequent strep throat. He reports that he is traveling on for his job. He has been using calamine lotion with little to no effect at home. No signs of induration or infection noted. Discussed home care, strict return instructions follow-up care and plan to give him prednisone for 5 days to start next week if the rash worsens patient verbalizes understanding. This text was generated using [employer] system, please disregard any oddities of phrase or misspellings. Quality:SDOH Health Related Social Needs: No Data to Display [facility] All Active Problems (Updated 01/21/24 @ 10:16 by Carolina Limon NP) Dermatitis due to plants, including poison michelle, sumac, and oak (Acute) Medical History frequent strep throat Concussion Surgical History left thumb repair bit by a pig at age 4 Tonsillectomy and adenoidectomy Family History Mother Hypothyroid Father No problems noted. Other No problems noted. Social History Smoking/Tobacco Use Status: Never Smoking risk assessment performed?: Yes Alcohol Intake: current Alcohol Intake frequency: holidays/special occasions only Alcohol type: hard liquor Drug use: Socially Substance use type: marijuana Do you feel safe at home: Yes Do you feel safe in your relationship?: Yes
== END 2024-01-21 10:24 | disposition home or self-care (01) ==
PROVIDERS: Emergency Provider Registered Nurse Emergency
DX: L24.7 Irritant contact dermatitis due to plants, except food (principal)
CPT/HCPCS: 99283

== ENCOUNTER 2025-03-23 04:06 | Emergency (ER) | payer MEDICAID, SELFPAY ==
[2025-03-23 04:10] VITALS: PULSE 101; RESP 18; TEMP 36.7; O2SAT 100
[2025-03-23 04:13] VITALS: BP 140/103
--- NOTE | 2025-03-23 04:15 | DI.RAD_ITS ---
Exam(s) XR ANKLE LT COMPLETE EXAM: XR ANKLE LT COMPLETE CLINICAL HISTORY: lateral pain in left ankle, rule out fracture. TECHNIQUE: 2D digital imaging was performed. COMPARISON: No exams were available for comparison FINDINGS: 3 views There is soft tissue swelling but no evidence of acute fracture or widening the ankle mortise. Talar dome unremarkable.. No obvious degenerative changes. No evidence of osseous tarsal coalition. IMPRESSION: No acute osseous findings in the ankle. Soft tissue swelling noted which is predominately lateral. DATA REPOSITORY: RADIATION DOSE DELIVERED:
[2025-03-23] MEDS: Ibuprofen 800 MG TAB PO (04:28)
--- NOTE | 2025-03-23 04:47 | ED.GENADUL_ITS ---
Discharge Plan Disposition Patient Disposition: Home Condition: Good Discharge Details Clinical Impression: Left ankle sprain Primary Care Provider: Unknown,Unknown ED Provider: Efrain Rivera Home Meds and New Rx's Prescriptions: No Action No Known Home Meds Discharge Instructions Instructions: Ankle Sprain ED Additional Instructions: At this time there is no evidence of significant fracture on your x-ray. It is likely that you sprained the ligaments of your ankle, particularly the lateral anterior talofibular ligament. Please take Tylenol and Motrin as needed for pain. You can take 1000 mg of Tylenol every 6 hours and 800 mg of Motrin every 6 hours. Alternatively please feel free to apply Voltaren gel instead of Motrin to your ankle to help with the pain and swelling. Ice it frequently. Please use the walking boot and crutches. Please remain nonweightbearing on the left foot or weightbearing as tolerated for the next week, he can then transition to 1 or 0 crutches for the following week, and then potentially no walking boot after that. If you do have persistent pain after this extended course of conservative therapy, you may need to be reevaluated by an critical care clinical nurse specialist. If you notice any worsening of your symptoms, or any new symptoms such as vomiting, diarrhea, fever, chills, shortness of breath, chest pain, numbness, weakness, or fainting , please return immediately to the emergency department for reevaluation. Please follow up with your primary care provider as soon as possible for reassessment and reevaluation. As always, it was a pleasure participating in your medical care today. Discharge Data Discharge Date/Time-TO BE ENTERED AT DEPARTURE: 03/23/25 05:22 HPI General Date/Time Provider Initiated Documentation: 03/23/25 04:12 . HPI Narrative: 29-year-old male presents today for evaluation of left ankle pain. Patient states that 2 and half days ago he was out playing [employer] when he ran and accidentally ran into a gopher hole with his left foot. This caused a hyper p lantarflexion and twisting of the ankle. He had immediate pain. He has been taking NSAIDs since then but is continued to have pain with ambulation on the lateral aspect of his ankle. He denies any new numbness or tingling. No other complaints at this time. No knee pain or chang pain. No other trauma. Related Data Home Medications ?Medication ?Instructions ?Recorded ?Confirmed Unknown [No Known Home Meds] 03/23/25 0 03/23/25 Allergies Allergy/AdvReac Type Severity Reaction Status Date / Time bacitracin (From Neosporin Allergy Skin Rash Unverified 03/23/25 04:12 ([id number])) latex Allergy Skin Rash Unverified 03/23/25 04:12 neomycin (From Neosporin Allergy Skin Rash Unverified 03/23/25 04:12 ([id number])) polymyxin B (From Neosporin Allergy Skin Rash Unverified 03/23/25 04:12 ([id number])) General Stated Complaint: Orthopedic RUTHIE: 4 Exam Narrative Exam Narrative: 1.Const: Well-nourished, Well-developed, appearing stated age 2.Eyes: PERRL, no conjunctival injection, and symmetrical lids. 3.ENT: Atraumatic external nose and ears. Moist MM. Neck: Symmetric, trachea midline, No thyromegaly. 4.CVS: +S1/S2, Peripheral pulses 2+ and equal in all extremities. Brisk capillary refill in all extremities. 5.RESP: Unlabored respiratory effort. Clear to auscultation bilaterally. No wheezes rales or rhonchi 6.GI: Soft, Nontender/Nondistended, No hepatosplenomegaly. No guarding or rebound. 7.MSK: Left ankle demonstrates swelling at the lateral malleolus, tenderness to the touch is present there, as well as the proximal metatarsals for the 3rd, 4th and 5th. No calcaneal tenderness. No medial malleolus tenderness. Dorsalis pedis and posterior tibial pulse +2 bilaterally. Good sensation throughout, brisk capillary refills present. Tenderness and worsening of pain with plantar and dorsiflexion, significantly with eversion of the ankle. 8.Skin: Warm, Dry. No rashes or lesions. 9.Neuro: squilgeer II-XII grossly intact. Sensation grossly intact, no focal neurologic deficits. 10.Psych: (AAO) x3. Appropriate mood and affect Course Vital Signs Vital signs: Vital Signs Temperature 36.7 C 03/23/25 04:10 Pulse 101 H 03/23/25 04:10 Respiratory Rate 18 03/23/25 04:10 Pulse Oximetry 100 03/23/25 04:10 Temperature 36.7 C 03/23/25 04:10 Pulse 101 H 03/23/25 04:10 Respiratory Rate 18 03/23/25 04:10 Blood Pressure 140/103 H 03/23/25 04:13 Blood Pressure Mean 115 03/23/25 04:13 Blood Pressure Position Sitting 03/23/25 04:10 Pulse Oximetry 100 03/23/25 04:10 Oxygen Delivery Method Room Air 03/23/25 04:10 Oxygen Flow Rate 0 03/23/25 04:10 Medical Decision Making 29-year-old male presents today for evaluation of left ankle pain. Patient states that 2 and half days ago he was out playing [employer] when he ran and accidentally ran into a gopher hole with his left foot. This caused a hyper plantarflexion and twisting of the ankle. He had immediate pain. He has been taking NSAIDs since then but is continued to have pain with ambulation on the lateral aspect of his ankle. He denies any new numbness or tingling. No other complaints at this time. No knee pain or chang pain. No other trauma. Left ankle demonstrates swelling at the lateral malleolus, tenderness to the touch is present there, as well as the proximal metatarsals for the 3rd, 4th and 5th. No calcaneal tenderness. No medial malleolus tenderness. Dorsalis pedis and posterior tibial pulse +2 bilaterally. Good sensation throughout, brisk capillary refills present. Tenderness and worsening of pain with plantar and dorsiflexion, significantly with eversion of the ankle. Concern for anterior talofibular ligament injury, potential distal fibular fracture, less likely talus injury. Will get x-rays, treat with NSAIDs, monitor closely and reassess. 4:59 AM X-ray results show no evidence of acute fracture per radiology. Patient will be given walking boot for home as well as crutches. Recommend continued NSAID therapy. Discussed red flags which to return. I have extensively reviewed the treatment plan and discharge instructions with the patient. I have addressed all patient concerns at this time. The patient was made aware of what symptoms to monitor for that would warrant a return to the emergency department. Discussed the plan with the patient, they demonstrate verbal understanding and agreement with our assessment and plan at this time. The documentation in this chart was dictated using [employer] dictation software. Please excuse any dictation errors. PFSH All Active Problems (Updated 03/23/25 @ 05:01 by Efrain Rivera DO) Left ankle sprain (Acute) Medical History frequent strep throat Concussion Surgical History left thumb repair bit by a pig at age 4 Tonsillectomy and adenoidectomy Family History Mother Hypothyroid Father No problems noted. Other No problems noted. Social History Smoking/Tobacco Use Status: Never Smoking risk assessment performed?: Yes Alcohol Intake: current Alcohol Intake frequency: holidays/special occasions only Alcohol type: hard liquor Drug use: Socially Substance use type: marijuana Do you feel safe at home: Yes Do you feel safe in your relationship?: Yes
--- NOTE | 2025-03-23 05:27 | DI.VRAD_ITS ---
PROCEDURE INFORMATION: Exam: XR Left Ankle Exam date and time: 03/23/2025 4:46 AM Age: 29 years old Clinical indication: Lateral pain in left ankle, rule out fracture TECHNIQUE: Imaging protocol: Radiologic exam of the left ankle. Views: 3 or more views. COMPARISON: No relevant prior studies available. FINDINGS: Bones/joints: Three views of the left ankle reveal no acute fracture or dislocation. The ankle mortise appears intact. Soft tissues: There is soft tissue swelling throughout the ankle. IMPRESSION: No acute fracture or dislocation seen at the left ankle. Dictated and Authenticated by: Leon Khan MD. Orderin Miguel Zuniga MD
--- NOTE | 2025-03-23 05:36 | NUR.NOTE ---
I was in this patient's chart after discharge due to getting interrupted while trying to document crutches and left ankle boot in worklist.
== END 2025-03-23 05:22 | disposition home or self-care (01) ==
PROVIDERS: Emergency Provider Student in an Organized Health Care Education/Training Program
DX: S93.401A Sprain of unspecified ligament of right ankle, initial encounter (principal); W50.1XXA Accidental kick by another person, initial encounter; Y93.01 Activity, walking, marching and hiking; Y92.89 Other specified places as the place of occurrence of the external cause
CPT/HCPCS: 99283; 73610